=== PATIENT | female | born 1955 | race Caucasian/White ===

== ENCOUNTER 2019-04-12 19:09 | Emergency (ER) | payer OTHER ==
[2019-04-12] MEDS ORDERED: PANTOPRAZOLE 40 MG INJ ONE (20:50)
[2019-04-12] MEDS ORDERED: MORPHINE 2 MG/ML SYR ONE ×2 (20:50→23:12)
[2019-04-12] MEDS ORDERED: NA CHLORIDE 0.9% 1,000 ML ONE (20:50)
[2019-04-12] MEDS ORDERED: ONDANSETRON 4 MG/2 ML VIAL ONE (20:50)
[2019-04-12 20:53] LABS: Absolute Lymphocytes (CBC) 1.6 K/uL (0.7-4.9); Basophils % 0.4 % (0-1.3); Hematocrit 35.9 % (36.0-45.0); MPV 10.2 fL (7.6-11.3); RBC Red Blood Cell Count 3.71 M/uL (3.86-4.86)
[2019-04-12 20:59] LABS: Protime INR 1.06
[2019-04-12 21:12] LABS: ALT/SGPT 24 U/L (12-78); AST/SGOT 22 U/L (15-37); Albumin 3.4 g/dL (3.4-5.0); Alkaline Phosphatase 70 U/L (45-117); BUN Blood Urea Nitrogen 18 mg/dL (7-18); Bicarbonate 29 mmol/L (21-32); Bilirubin Direct 0.1 mg/dL (0-0.2); Bilirubin Total 0.2 mg/dL (0.2-1.0); Glucose Level 91 mg/dL (74-106); Lipase 68 U/L (73-393); Magnesium 1.7 mg/dL (1.8-2.4); NT PRO-BNP 292 pg/mL (<125); Potassium 3.6 mmol/L (3.5-5.1); Protein, Total 7.6 g/dL (6.4-8.2); Sodium Level 138 mmol/L (136-145); Troponin (Emerg Dept Use Only) < 0.02 ng/mL (0.0-0.045)
[2019-04-12 21:36] LABS: Blood Morphology Comment NOT SEEN (NOT SEEN); Platelet Estimate DECR; Urine White Blood Cell Casts OK
[2019-04-12] MEDS ORDERED: METRONIDAZOLE 500mg IVPB 500 MG/100 ML BAG IV ONE (22:05)
[2019-04-12] MEDS ORDERED: CIPROFLOXACIN 400mg IV 400 MG/200 ML BAG IV ONE (22:05)
--- NOTE | 2019-04-12 22:08 | RAD REPORT ---
EXAM DESCRIPTION: Janice Single View04/12/2019 9:15 pm CLINICAL HISTORY: Abdominal pain COMPARISON: none FINDINGS: The lungs appear clear of acute infiltrate. The heart is probably upper limits normal siz e IMPRESSION: No acute abnormalities displayed
[2019-04-12] MEDS ORDERED: MAGNESIUM SULFATE 1 gm IVPB 1 GM/100 ML BAG IV ONE (22:45)
--- NOTE | 2019-04-13 00:15 | ER ---
Nurse's Notes [facility] Name: Asia Cotton Age: 63 yrs Sex: Female : 1955 Arrival Date: 04/12/2019 Time: 19:11 Bed 30 Private MD: Diagnosis: Generalized abdominal pain;Constipation Presentation: 04/12 20:16 Presenting complaint: Patient states: upper abd pain x 1 week. States she has been out aa1 of her protonix and has been eating lots of spicy food lately. Transition of care: patient was not received from another setting of care. Onset of symptoms was April 05, 2019. Risk Assessment: Do you want to hurt yourself or someone else? Patient reports no desire to harm self or others. Initial Sepsis Screen: Does the patient meet any 2 criteria? No. Patient's initial sepsis screen is negative. Does the patient have a suspected source of infection? No. Patient's initial sepsis screen is negative. Care prior to arrival: None. 20:16 Method Of Arrival: Ambulatory aa1 20:16 Acuity: DONTE 3 aa1 Triage Assessment: 20:16 General: Appears in no apparent distress. comfortable, Behavior is calm, cooperative, aa1 appropriate for age. Pain: Complains of pain in epigastric area. Historical: - Allergies: 20:31 Coconut; aa1 20:31 Metformin HCl; aa1 20:31 Hydrocodone-Acetaminophen; aa1 - Home Meds: 20:31 aspirin 325 mg Oral tab 1 tab once daily [Active]; levothyroxine 125 mcg tab 1 tab once aa1 daily [Active]; metoprolol tartrate 25 mg Oral tab 1 tab once daily [Active]; glipizide 5 mg Oral tab 0.5 tab nightly [Active]; simvastatin 10 mg Oral tab 1 tab once daily [Active]; pantoprazole 40 mg oral TbEC 2 tabs 2 times per day [Active]; cholecalciferol (vitamin D3) 5,000 unit oral tab daily [Active]; phentermine 37.5 mg oral cap 1 cap once daily [Active]; sytojsjtor-enwruickep-rvb-cod 28-674-57-30 mg oral cap as needed [Active]; tizanidine 4 mg oral cap 2 caps nightly [Active]; temazepam 30 mg Oral cap 1 cap once daily [Active]; promethazine 25 mg Oral tab 1 tab as needed [Active]; - PMHx: 20:31 Diabetes - NIDDM; Hypertension; High Cholesterol; Hypothyroidism; GERD; Cancer, Breast; aa1 cervical cancer; - PSHx: 20:31 Cholecystectomy; ; Joint replacement; lymphnode removal; aa1 - Immunization history:: Flu vaccine is up to date. - Social history:: Smoking status: Patient/guardian denies using tobacco. - Ebola Screening: : Patient denies exposure to infectious person Patient denies travel to an Ebola-affected area in the 21 days before illness onset. - Family history:: not pertinent. Screenin:21 Abuse screen: Denies threats or abuse. Denies injuries from another. Nutritional rv screening: No deficits noted. Tuberculosis screening: No symptoms or risk factors identified. Fall Risk None identified. Assessment: 21:20 Reassessment: contrast finished at 2115. General: Appears in no apparent distress. rv uncomfortable, Behavior is calm, cooperative. Pain: Complains of pain in abdomen. Neuro: Level of Consciousness is awake, alert, obeys commands, Oriented to person, place, time, situation. Cardiovascular: Patient's skin is warm and dry. Respiratory: Airway is patent. GI: Bowel sounds present X 4 quads. Abd is soft and non tender X 4 quads. Derm: Skin is intact. Vital Signs: 20:16 BP 147 / 68; Pulse 78; Resp 18; Temp 100.0(O); Pulse Ox 99% ; Weight 99.34 kg; Height 5 aa1 ft. 6 in. (167.64 cm); Pain 9/10; 23:29 BP 116 / 73; Pulse 73; Resp 18; Pulse Ox 97% on R/A; mg2 23:47 BP 121 / 72; Pulse 75; Resp 17; Pulse Ox 98% on R/A; rv 04/13 00:42 BP 120 / 74; Pulse 71; Resp 17; Pulse Ox 100% on R/A; rv 04/12 20:16 Body Mass Index 35.35 (99.34 kg, 167.64 cm) aa1 ED Course: 04/12 19:11 Patient arrived in ED. rg4 20:07 Robi Campuzano MD is Attending Physician. mindi 20:16 Arm band placed on right wrist. aa1 20:22 Triage completed. aa1 20:26 Kenneth Arce, BLANCA is Primary Nurse. rv 20:56 Inserted saline lock: 22 gauge in right upper arm, using aseptic technique. Blood mg2 collected. 21:16 XRAY Chest (1 view) In Process Unspecified. EDMS 21:21 Patient has correct armband on for positive identification. Call light in reach. Side rv rails up X 1. Pulse ox on. NIBP on. 22:56 Whit Chopra FNP-C is PHCP. kb 23:07 CT Abd/Pelvis - PO and IV Contrast In Process Unspecified. EDMS 23:30 No provider procedures requiring assistance completed. mg2 04/13 00:44 IV discontinued, intact, bleeding controlled, No redness/swelling at site. Pressure rv dressing applied. Administered Medications: 04/12 20:57 Drug: morphine 2 mg {Note: rass 0.} Route: IVP; Site: right upper arm; rv 21:55 Follow up: Response: No adverse reaction; Marked relief of symptoms; Pain is decreased; rv RASS: Alert and Calm (0) 20:57 Drug: Zofran 4 mg Route: IVP; Site: right upper arm; rv 21:55 Follow up: Response: No adverse reaction rv 20:57 Drug: ProTONIX 40 mg Route: IVP; Site: right upper arm; rv 23:20 Follow up: Response: No adverse reaction rv 20:58 Drug: NS 0.9% 1000 ml Route: IV; Rate: 1 bolus; Site: right upper arm; rv 21:54 Follow up: IV Status: Completed infusion; IV Intake: 1000ml rv 22:06 Drug: Flagyl 500 mg Volume: 100 ml; Route: IVPB; Rate: 200 ml/hr; Infused Over: 30 rv mins; Site: right upper arm; 22:36 Follow up: IV Status: Completed infusion; IV Intake: 100ml rv 23:15 Drug: morphine 2 mg Route: IVP; Site: right upper arm; rv 23:20 Drug: Magnesium Sulfate 1 grams Route: IVPB; Infused Over: 1 hrs; Site: right upper arm;rv 23:46 Follow up: IV Status: Completed infusion; IV Intake: 100ml rv 23:46 Drug: Cipro 400 mg Volume: 200 ml; Route: IVPB; Infused Over: 60 mins; Site: right rv upper arm; 04/13 00:43 Follow up: IV Status: Completed infusion; IV Intake: 200ml rv Intake: 04/12 21:54 IV: 1000ml; Total: 1000ml. rv 22:36 IV: 100ml; Total: 1100ml. rv 23:46 IV: 100ml; Total: 1200ml. rv 04/13 00:43 IV: 200ml; Total: 1400ml. rv Outcome: 00:14 Discharge ordered by . deya 00:42 Discharged to home ambulatory. rv 00:42 Condition: good 00:42 Discharge instructions given to patient, Instructed on discharge instructions, follow up and referral plans. medication usage, Demonstrated understanding of instructions, follow-up care, medications, Prescriptions given X 4. 00:44 Patient left the ED. rv Signatures: Dispatcher [employer] EDMS Whit Chopra, ROLLER SKATE ASSEMBLER-C ROLLER SKATE ASSEMBLER-CkMarii Diaz, RN RN aa1 Robi Campuzano MD MD cha Garcia, Rubi rg4 Lenny Moon RN RN mg2 Vicente, Ronaldo, RN RN rv
--- NOTE | 2019-04-13 00:15 | EDPHYS ---
Physician Documentation [facility] Name: Asia Cotton Age: 63 yrs Sex: Female : 1955 Arrival Date: 04/12/2019 Time: 19:11 Bed 30 Private MD: ED Physician Robi Campuzano HPI: 04/12 20:42 This 63 yrs old Female presents to ER via Ambulatory with complaints of mindi Abdominal Pain. 20:42 The patient presents with abdominal pain in the upper abdomen, in the lower abdomen, mindi abdominal distention in the upper abdomen, in the lower abdomen. Onset: The symptoms/episode began/occurred 2 day(s) ago. The symptoms do not radiate. Associated signs and symptoms: none. The symptoms are described as crampy. Modifying factors: The symptoms are alleviated by nothing, the symptoms are aggravated by movement. Severity of pain: At its worst the pain was mild moderate in the emergency department the pain is unchanged. The patient has not experienced similar symptoms in the past. Historical: - Allergies: 20:31 Coconut; aa1 20:31 Metformin HCl; aa1 20:31 Hydrocodone-Acetaminophen; aa1 - Home Meds: 20:31 aspirin 325 mg Oral tab 1 tab once daily [Active]; levothyroxine 125 mcg tab 1 tab once aa1 daily [Active]; metoprolol tartrate 25 mg Oral tab 1 tab once daily [Active]; glipizide 5 mg Oral tab 0.5 tab nightly [Active]; simvastatin 10 mg Oral tab 1 tab once daily [Active]; pantoprazole 40 mg oral TbEC 2 tabs 2 times per day [Active]; cholecalciferol (vitamin D3) 5,000 unit oral tab daily [Active]; phentermine 37.5 mg oral cap 1 cap once daily [Active]; lqceeerjwx-vrrfohpsed-ulp-cod [id number] mg oral cap as needed [Active]; tizanidine 4 mg oral cap 2 caps nightly [Active]; temazepam 30 mg Oral cap 1 cap once daily [Active]; promethazine 25 mg Oral tab 1 tab as needed [Active]; - PMHx: 20:31 Diabetes - NIDDM; Hypertension; High Cholesterol; Hypothyroidism; GERD; Cancer, Breast; aa1 cervical cancer; - PSHx: 20:31 Cholecystectomy; ; Joint replacement; lymphnode removal; aa1 - Immunization history:: Flu vaccine is up to date. - Social history:: Smoking status: Patient/guardian denies using tobacco. - Ebola Screening: : Patient denies exposure to infectious person Patient denies travel to an Ebola-affected area in the 21 days before illness onset. - Family history:: not pertinent. ROS: 20:42 Constitutional: Negative for fever, chills, and weight loss, Eyes: Negative for injury, mindi pain, redness, and discharge, ENT: Negative for injury, pain, and discharge, Neck: Negative for injury, pain, and swelling, Cardiovascular: Negative for chest pain, palpitations, and edema, Respiratory: Negative for shortness of breath, cough, wheezing, and pleuritic chest pain, Back: Negative for injury and pain, : Negative for injury, bleeding, discharge, and swelling, MS/Extremity: Negative for injury and deformity, Skin: Negative for injury, rash, and discoloration, Neuro: Negative for headache, weakness, numbness, tingling, and seizure, Psych: Negative for depression, anxiety, suicide ideation, homicidal ideation, and hallucinations, Allergy/Immunology: Negative for hives, rash, and allergies, Endocrine: Negative for neck swelling, polydipsia, polyuria, polyphagia, and marked weight changes, Hematologic/Lymphatic: Negative for swollen nodes, abnormal bleeding, and unusual bruising. 20:42 Abdomen/GI: Positive for abdominal pain, of the right upper quadrant, left upper quadrant, right lower quadrant and left lower quadrant. Exam: 20:42 Constitutional: This is a well developed, well nourished patient who is awake, alert, mindi and in no acute distress. Head/Face: Normocephalic, atraumatic. Eyes: Pupils equal round and reactive to light, extra-ocular motions intact. Lids and lashes normal. Conjunctiva and sclera are non-icteric and not injected. Cornea within normal limits. Periorbital areas with no swelling, redness, or edema. ENT: Nares patent. No nasal discharge, no septal abnormalities noted. Tympanic membranes are normal and external auditory canals are clear. Oropharynx with no redness, swelling, or masses, exudates, or evidence of obstruction, uvula midline. Mucous membranes moist. Neck: Trachea midline, no thyromegaly or masses palpated, and no cervical lymphadenopathy. Supple, full range of motion without nuchal rigidity, or vertebral point tenderness. No Meningismus. Chest/axilla: Normal chest wall appearance and motion. Nontender with no deformity. No lesions are appreciated. Cardiovascular: Regular rate and rhythm with a normal S1 and S2. No gallops, murmurs, or rubs. Normal PMI, no JVD. No pulse deficits. Respiratory: Lungs have equal breath sounds bilaterally, clear to auscultation and percussion. No rales, rhonchi or wheezes noted. No increased work of breathing, no retractions or nasal flaring. Back: No spinal tenderness. No costovertebral tenderness. Full range of motion. Skin: Warm, dry with normal turgor. Normal color with no rashes, no lesions, and no evidence of cellulitis. MS/ Extremity: Pulses equal, no cyanosis. Neurovascular intact. Full, normal range of motion. Neuro: Awake and alert, GCS 15, oriented to person, place, time, and situation. Cranial nerves II-XII grossly intact. Motor strength 5/5 in all extremities. Sensory grossly intact. Cerebellar exam normal. Normal gait. Psych: Awake, alert, with orientation to person, place and time. Behavior, mood, and affect are within normal limits. 20:42 Abdomen/GI: Inspection: abdomen appears normal, Bowel sounds: active, Palpation: mild abdominal tenderness, in all quadrants, Liver: no appreciated palpable abnormalities, Hernia: not appreciated. Vital Signs: 20:16 BP 147 / 68; Pulse 78; Resp 18; Temp 100.0(O); Pulse Ox 99% ; Weight 99.34 kg; Height 5 aa1 ft. 6 in. (167.64 cm); Pain 9/10; 23:29 BP 116 / 73; Pulse 73; Resp 18; Pulse Ox 97% on R/A; mg2 23:47 BP 121 / 72; Pulse 75; Resp 17; Pulse Ox 98% on R/A; rv 04/13 00:42 BP 120 / 74; Pulse 71; Resp 17; Pulse Ox 100% on R/A; rv 04/12 20:16 Body Mass Index 35.35 (99.34 kg, 167.64 cm) aa1 MDM: 04/12 20:07 Patient medically screened. [facility] 20:44 Data reviewed: vital signs, nurses notes, lab test result(s), EKG, radiologic studies, [facility] CT scan, plain films. 04/13 00:12 Data interpreted: Pulse oximetry: on room air is 98 %. Interpretation: normal. kb Counseling: I had a detailed discussion with the patient and/or guardian regarding: the historical points, exam findings, and any diagnostic results supporting the discharge/admit diagnosis, lab results, radiology results, the need for outpatient follow up, a family practitioner, to return to the emergency department if symptoms worsen or persist or if there are any questions or concerns that arise at home. 04/12 20:39 Order name: Basic Metabolic Panel; Complete Time: 22:04 [facility] 04/12 20:39 Order name: CBC with Diff; Complete Time: 22:04 [facility] 04/12 20:39 Order name: LFT's; Complete Time: 22:04 [facility] 04/12 20:39 Order name: Magnesium; Complete Time: 22:04 [facility] 04/12 20:39 Order name: NT PRO-BNP; Complete Time: 22:04 [facility] 04/12 20:39 Order name: PT-INR; Complete Time: 22:04 [facility] 04/12 20:39 Order name: Troponin (emerg Dept Use Only); Complete Time: 22:04 [facility] 04/12 20:39 Order name: XRAY Chest (1 view); Complete Time: 22:56 [facility] 04/12 20:39 Order name: Lipase; Complete Time: 22:04 [facility] 04/12 20:39 Order name: CT Abd/Pelvis - PO and IV Contrast [facility] 04/12 21:11 Order name: CBC Smear Scan; Complete Time: 22:04 [facility] 04/12 20:39 Order name: Cardiac monitoring; Complete Time: 20:59 [facility] 04/12 20:39 Order name: EKG - Nurse/Tech; Complete Time: 23:47 [facility] 04/12 20:39 Order name: IV Saline Lock; Complete Time: 20:59 [facility] 04/12 20:39 Order name: Labs collected and sent; Complete Time: 20:59 [facility] 04/12 20:39 Order name: O2 Per Protocol; Complete Time: 21:02 [facility] 04/12 20:39 Order name: O2 Sat Monitoring; Complete Time: 21:02 [facility] Administered Medications: 04/12 20:57 Drug: morphine 2 mg {Note: rass 0.} Route: IVP; Site: right upper arm; rv 21:55 Follow up: Response: No adverse reaction; Marked relief of symptoms; Pain is decreased; rv RASS: Alert and Calm (0) 20:57 Drug: Zofran 4 mg Route: IVP; Site: right upper arm; rv 21:55 Follow up: Response: No adverse reaction rv 20:57 Drug: ProTONIX 40 mg Route: IVP; Site: right upper arm; rv 23:20 Follow up: Response: No adverse reaction rv 20:58 Drug: NS 0.9% 1000 ml Route: IV; Rate: 1 bolus; Site: right upper arm; rv 21:54 Follow up: IV Status: Completed infusion; IV Intake: 1000ml rv 22:06 Drug: Flagyl 500 mg Volume: 100 ml; Route: IVPB; Rate: 200 ml/hr; Infused Over: 30 rv mins; Site: right upper arm; 22:36 Follow up: IV Status: Completed infusion; IV Intake: 100ml rv 23:15 Drug: morphine 2 mg Route: IVP; Site: right upper arm; rv 23:20 Drug: Magnesium Sulfate 1 grams Route: IVPB; Infused Over: 1 hrs; Site: right upper arm;rv 23:46 Follow up: IV Status: Completed infusion; IV Intake: 100ml rv 23:46 Drug: Cipro 400 mg Volume: 200 ml; Route: IVPB; Infused Over: 60 mins; Site: right rv upper arm; 04/13 00:43 Follow up: IV Status: Completed infusion; IV Intake: 200ml rv Disposition: 04/13/19 00:14 Discharged to Home. Impression: Generalized abdominal pain, Constipation. - Condition is Stable. - Discharge Instructions: Constipation, Pediatric, [id number], Abdominal Pain, Pediatric. - Prescriptions for Zofran 4 mg Oral Tablet - take 1 tablet by ORAL route every 6 hours As needed; 20 tablet. Bentyl 20 mg Oral Tablet - take 1 tablet by ORAL route every 6 hours As needed; 20 tablet. Flagyl 500 mg Oral Tablet - take 1 tablet by ORAL route every 8 hours for 10 days; 30 tablet. Protonix 40 mg Oral Tablet - take 1 tablet by ORAL route once daily; 30 tablet. - Medication Reconciliation Form, Thank You Letter, Antibiotic Education, Prescription Opioid Use form. - Follow up: Emergency Department; When: As needed; Reason: Worsening of condition. Follow up: Private Physician; When: 2 - 3 days; Reason: Recheck today's complaints, Continuance of care, Re-evaluation by your physician. Addendum: 04/19/2019 10:49 Co-signature as Attending Physician, Robi Campuzano MD I agree with the assessment and c harper plan of care. Signatures: Dispatcher [employer] EDSC Whit Chopra, SOCKET PULLER-C SOCKET PULLER-Ckb Marii Collins RN RN aa1 Robi Campuzano MD MD cha Vicente, Ronaldo RN RN rv Corrections: (The following items were deleted from the chart) 04/13 00:44 00:14 04/13/2019 00:14 Discharged to Home. Impression: Generalized abdominal pain; rv Constipation. Condition is Stable. Forms are Medication Reconciliation Form, Thank You Letter, Antibiotic Education, Prescription Opioid Use. Follow up: Emergency Department; When: As needed; Reason: Worsening of condition. Follow up: Private Physician; When: 2 - 3 days; Reason: Recheck today's complaints, Continuance of care, Re-evaluation by your physician. kb
--- NOTE | 2019-04-15 12:23 | RAD REPORT ---
EXAM DESCRIPTION: CT - Abdomen Pelvis W Contrast - 04/12/2019 11:07 pm CLINICAL HISTORY: Abdominal pain. TECHNIQUE: CT scan of the abdomen and pelvis was performed with oral and intravenous contrast. 5 mm arterial phase axial images of the abdomen were obtained. 5 mm venous phase axial images of the abdomen and pelvis were obtained along with coronal and sagitta l reformatted images. DOSE OPTIMIZATION: This facility uses dose optimization techniques as appropriate to perform exams, including at least one of the following techniques: 1. Automated exposure control. 2. Adjustment of the mA and/or kV according to patient size (this includes techniques or standardized protocols for targeted exams where dose is matched to the indication/reason for exam, i.e. extremiti es or head). 3. Use of iterative reconstructive technique. INTRAVENOUS AND ORAL CONTRAST: Not documented. Please refer to medical record. COMPARISON: None. FINDINGS: Lung Bases: Normal. Liver: There is evidence of hepatic cirrhosis. Spleen: Normal. Pancreas: Normal. Gallbladder: Surgically absent. Adrenal Glands: Normal. Kidneys: Normal. Retroperitoneal Structures: Normal. Bowel Survey: There is increased stool identified throughout the ascending, transverse, and descendin g colon. The distal ileum is unremarkable. The appendix is unremarkable. There is moderately severe diverticulosis of the distal sigmoid colon. Uterus and Adnexa: Absent. Urinary Bladder: Normal. Peritoneal Cavity: Normal. Mesenteric Structures: Normal. Abdominal Wall: There is a tiny umbilical hernia containing fat. Bony Structures: No suspicious lesions. IMPRESSION: 1. Increased stool within the ascending, transverse, and descending colon. 2. Moderately severe sigmoid diverticulosis. 3. Evidence of hepatic cirrhosis. 4. Atherosclerotic disease. Electronically signed by: Desmond Torres MD 04/12/2019 11:38 PM PANTS CUTTER Due to temporary technical issues with the PACS/Fluency reporting system, reports are being signed by the in house radiologist as a courtesy to ensure prompt reporting. The interpreting radiologist is f ully responsible for the content of the report.
== END 2019-04-13 00:44 | disposition home or self-care (01) ==
LOC: ER 19:09
DX: K59.00 Constipation, unspecified (principal); I10 Essential (primary) hypertension; E11.9 Type 2 diabetes mellitus without complications; E78.00 Pure hypercholesterolemia, unspecified; E03.9 Hypothyroidism, unspecified; Z79.82 Long term (current) use of aspirin; Z85.3 Personal history of malignant neoplasm of breast; Z85.41 Personal history of malignant neoplasm of cervix uteri
CPT/HCPCS: 96365; 96367; 96361; 85025; 80048; 36415; 83735; 85610; 80076; 84484; 83690; 83880; 74177; 71045; 96375; 99284; Q9967; C9113; J3475; J2270 ×2; J7030; J2405; J0744

== ENCOUNTER 2019-05-12 18:22 | Emergency (ER) | payer OTHER ==
[2019-05-12] MEDS ORDERED: ONDANSETRON 4 MG (ODT) TAB ONE (19:20)
--- NOTE | 2019-05-12 20:15 | ER ---
Nurse's Notes [facility] Name: Asia Cotton Age: 63 yrs Sex: Female : 1955 Arrival Date: 05/12/2019 Time: 18:24 Bed 18 Private MD: Diagnosis: Influenza due to identified novel influenza A virus Presentation: 05/12 18:46 Presenting complaint: Patient states: HERNANDEZ, cough, sneezing, N/V, soreness in chest from jl7 coughing x 3 days, granddaughter has strep and flu. Transition of care: patient was not received from another setting of care. Onset of symptoms was May 09, 2019. Risk Assessment: Do you want to hurt yourself or someone else? Patient reports no desire to harm self or others. Initial Sepsis Screen: Does the patient meet any 2 criteria? No. Patient's initial sepsis screen is negative. Does the patient have a suspected source of infection? No. Patient's initial sepsis screen is negative. Care prior to arrival: None. 18:46 Method Of Arrival: Ambulatory [facility] 18:46 Acuity: DONTE 4 7 Historical: - Allergies: 18:49 Coconut; 18:49 Hydrocodone-Acetaminophen; 18:49 Metformin HCl; jl7 - Home Meds: 18:49 aspirin 325 mg Oral tab 1 tab once daily [Active]; wwlexqbaiz-ezasgwzkom-xie-cod [facility] [id number] mg Oral cap as needed [Active]; cholecalciferol (vitamin D3) 5,000 unit Oral tab daily [Active]; glipizide 5 mg Oral tab 0.5 tab nightly [Active]; levothyroxine 125 mcg tab 1 tab once daily [Active]; metoprolol tartrate 25 mg Oral tab 1 tab once daily [Active]; pantoprazole 40 mg Oral TbEC 2 tabs 2 times per day [Active]; phentermine 37.5 mg Oral cap 1 cap once daily [Active]; promethazine 25 mg Oral tab 1 tab as needed [Active]; simvastatin 10 mg Oral tab 1 tab once daily [Active]; temazepam 30 mg Oral cap 1 cap once daily [Active]; tizanidine 4 mg Oral cap 2 caps nightly [Active]; - PMHx: 18:49 Cancer, Breast; cervical cancer; Diabetes - NIDDM; GERD; High Cholesterol; jl7 Hypertension; Hypothyroidism; - PSHx: 18:49 Cholecystectomy; ; lymphnode removal; Joint replacement; jl7 - Immunization history:: Adult Immunizations up to date. - Coronavirus screen:: The patient has NOT traveled to [place], [place], or [place] in the past 14 days. Proceed with normal triage process as indicated. - Social history:: Smoking status: Patient denies any tobacco usage or history of. - Ebola Screening: : No symptoms or risks identified at this time. Screenin:10 Abuse screen: Denies threats or abuse. Denies injuries from another. Nutritional wh screening: No deficits noted. Tuberculosis screening: No symptoms or risk factors identified. Fall Risk None identified. Assessment: 19:10 General: Appears in no apparent distress. Behavior is calm, cooperative, appropriate wh for age. Pain: Denies pain. Neuro: Level of Consciousness is awake, alert, obeys commands, Oriented to person, place, time, situation, Appropriate for age. Cardiovascular: Heart tones S1 S2. Respiratory: Reports shortness of breath cough that is Airway is patent Respiratory effort is even, unlabored, Respiratory pattern is regular, symmetrical, Breath sounds are clear bilaterally. GI: Abdomen is flat, non-distended. : No signs and/or symptoms were reported regarding the genitourinary system. EENT: Throat is pink. Derm: Skin is intact, is healthy with good turgor, Skin is pink, warm \T\ dry. normal. Musculoskeletal: Circulation, motion, and sensation intact. 20:09 Reassessment: Patient appears in no apparent distress at this time. No changes from previously documented assessment. Patient and/or family updated on plan of care and expected duration. Pain level reassessed. Patient is alert, oriented x 3, equal unlabored respirations, skin warm/dry/pink. Vital Signs: 18:49 BP 100 / 68; Pulse 81; Resp 17 S; Temp 99.1(O); Pulse Ox 98% on R/A; Weight 99.79 kg jl7 (R); Height 5 ft. 6 in. (167.64 cm) (R); Pain 10/10; 20:00 BP 101 / 58; Pulse 77; Resp 18; Pulse Ox 96% on R/A; wh 18:49 Body Mass Index 35.51 (99.79 kg, 167.64 cm) [facility] ED Course: 18:24 Patient arrived in ED. as 18:47 Triage completed. 7 18:49 Arm band placed on right wrist. [facility] 18:50 Whit Chopra FNP-C [facility]. kb 18:50 Robi Campuzano MD is Attending Physician. kb 19:10 Patient has correct armband on for positive identification. Bed in low position. Call light in reach. Side rails up X 1. Pulse ox on. NIBP on. 19:14 Sami Duke is Primary Nurse. 20:26 No provider procedures requiring assistance completed. Patient did not have IV access during this emergency room visit. Administered Medications: 19:25 Drug: Zofran 4 mg Route: PO; 20:26 Follow up: Response: No adverse reaction; Nausea is decreased Outcome: 20:16 Discharge ordered by . kb 20:27 Discharged to home ambulatory. 20:27 Condition: stable 20:27 Discharge instructions given to patient, Instructed on discharge instructions, follow up and referral plans. medication usage, POC Demonstrated understanding of instructions, follow-up care, medications, POC Prescriptions given X 1. 20:28 Patient left the ED. Signatures: Whit Chopra FNP-C FNP-Silvina Tate Jahala, RN RN [facility] Sami Duke
--- NOTE | 2019-05-12 20:15 | EDPHYS ---
Physician Documentation [facility] Name: Asia Cotton Age: 63 yrs Sex: Female : 1955 Arrival Date: 05/12/2019 Time: 18:24 Bed 18 Private MD: ED Physician Robi Campuzano HPI: 05/12 20:15 This 63 yrs old Female presents to ER via Ambulatory with complaints of Flu kb Symptoms. 20:15 The patient or guardian reports flu symptoms, low-grade fever, myalgias. Onset: The kb symptoms/episode began/occurred 3 day(s) ago. Severity of symptoms: At their worst the symptoms were moderate, in the emergency department the symptoms are unchanged. Modifying factors: The symptoms are alleviated by nothing, the symptoms are aggravated by nothing. Associated signs and symptoms: Pertinent positives: fever, nausea, vomiting. The patient has not experienced similar symptoms in the past. The patient has not recently seen a physician. Historical: - Allergies: 18:49 Coconut; jl7 18:49 Hydrocodone-Acetaminophen; jl7 18:49 Metformin HCl; jl7 - Home Meds: 18:49 aspirin 325 mg Oral tab 1 tab once daily [Active]; sozopjnadh-kxtvkgyvou-xjj-cod jl7 [id number] mg Oral cap as needed [Active]; cholecalciferol (vitamin D3) 5,000 unit Oral tab daily [Active]; glipizide 5 mg Oral tab 0.5 tab nightly [Active]; levothyroxine 125 mcg tab 1 tab once daily [Active]; metoprolol tartrate 25 mg Oral tab 1 tab once daily [Active]; pantoprazole 40 mg Oral TbEC 2 tabs 2 times per day [Active]; phentermine 37.5 mg Oral cap 1 cap once daily [Active]; promethazine 25 mg Oral tab 1 tab as needed [Active]; simvastatin 10 mg Oral tab 1 tab once daily [Active]; temazepam 30 mg Oral cap 1 cap once daily [Active]; tizanidine 4 mg Oral cap 2 caps nightly [Active]; - PMHx: 18:49 Cancer, Breast; cervical cancer; Diabetes - NIDDM; GERD; High Cholesterol; jl7 Hypertension; Hypothyroidism; - PSHx: 18:49 Cholecystectomy; ; lymphnode removal; Joint replacement; jl7 - Immunization history:: Adult Immunizations up to date. - Coronavirus screen:: The patient has NOT traveled to [place], [place], or [place] in the past 14 days. Proceed with normal triage process as indicated. - Social history:: Smoking status: Patient denies any tobacco usage or history of. - Ebola Screening: : No symptoms or risks identified at this time. ROS: 20:14 ENT: Negative for injury, pain, and discharge, Neck: Negative for injury, pain, and kb swelling, Cardiovascular: Negative for chest pain, palpitations, and edema, Respiratory: Negative for shortness of breath, cough, wheezing, and pleuritic chest pain, Back: Negative for injury and pain, MS/Extremity: Negative for injury and deformity, Skin: Negative for injury, rash, and discoloration, Neuro: Negative for headache, weakness, numbness, tingling, and seizure. 20:14 Constitutional: Positive for body aches, chills, fatigue, fever, malaise. 20:14 Abdomen/GI: Positive for nausea and vomiting. Exam: 20:14 Constitutional: This is a well developed, well nourished patient who is awake, alert, kb and in no acute distress. Head/Face: Normocephalic, atraumatic. ENT: Nares patent. No nasal discharge, no septal abnormalities noted. Tympanic membranes are normal and external auditory canals are clear. Oropharynx with no redness, swelling, or masses, exudates, or evidence of obstruction, uvula midline. Mucous membranes moist. Neck: Trachea midline, no thyromegaly or masses palpated, and no cervical lymphadenopathy. Supple, full range of motion without nuchal rigidity, or vertebral point tenderness. No Meningismus. Chest/axilla: Normal chest wall appearance and motion. Nontender with no deformity. No lesions are appreciated. Cardiovascular: Regular rate and rhythm with a normal S1 and S2. No gallops, murmurs, or rubs. Normal PMI, no JVD. No pulse deficits. Respiratory: Lungs have equal breath sounds bilaterally, clear to auscultation and percussion. No rales, rhonchi or wheezes noted. No increased work of breathing, no retractions or nasal flaring. Abdomen/GI: Soft, non-tender, with normal bowel sounds. No distension or tympany. No guarding or rebound. No evidence of tenderness throughout. Skin: Warm, dry with normal turgor. Normal color with no rashes, no lesions, and no evidence of cellulitis. MS/ Extremity: Pulses equal, no cyanosis. Neurovascular intact. Full, normal range of motion. Neuro: Awake and alert, GCS 15, oriented to person, place, time, and situation. Cranial nerves II-XII grossly intact. Motor strength 5/5 in all extremities. Sensory grossly intact. Cerebellar exam normal. Normal gait. Vital Signs: 18:49 BP 100 / 68; Pulse 81; Resp 17 S; Temp 99.1(O); Pulse Ox 98% on R/A; Weight 99.79 kg jl7 (R); Height 5 ft. 6 in. (167.64 cm) (R); Pain 10/10; 20:00 BP 101 / 58; Pulse 77; Resp 18; Pulse Ox 96% on R/A; wh 18:49 Body Mass Index 35.51 (99.79 kg, 167.64 cm) jl7 MDM: 18:59 Patient medically screened. kb 20:14 Data reviewed: vital signs, nurses notes. Data interpreted: Pulse oximetry: on room air kb is 96 %. Interpretation: normal. Counseling: I had a detailed discussion with the patient and/or guardian regarding: the historical points, exam findings, and any diagnostic results supporting the discharge/admit diagnosis, lab results, the need for outpatient follow up, a family practitioner, to return to the emergency department if symptoms worsen or persist or if there are any questions or concerns that arise at home. 05/12 18:50 Order name: Flu; Complete Time: 19:56 kb 05/12 18:50 Order name: Strep; Complete Time: 19:56 kb 05/12 19:56 Order name: Throat Culture EDMS Administered Medications: 19:25 Drug: Zofran 4 mg Route: PO; wh 20:26 Follow up: Response: No adverse reaction; Nausea is decreased wh Disposition: 05/13 07:39 Co-signature as Attending Physician, Robi Campuzano MD I agree with the assessment and mindi plan of care. Disposition: 05/12/19 20:16 Discharged to Home. Impression: Influenza due to identified novel influenza A virus. - Condition is Stable. - Discharge Instructions: Influenza, Adult, Kvlv-hi-Ypog, Viral Respiratory Infection, [id number]. - Prescriptions for Zofran 4 mg Oral Tablet - take 1 tablet by ORAL route every 6 hours As needed; 20 tablet. - Medication Reconciliation Form, Thank You Letter, Antibiotic Education, Prescription Opioid Use form. - Follow up: Emergency Department; When: As needed; Reason: Worsening of condition. Follow up: Private Physician; When: 2 - 3 days; Reason: Recheck today's complaints, Continuance of care, Re-evaluation by your physician. Signatures: Dispatcher [employer] EDWhit Macdonald, TREV-Krista LÓPEZP-Robi Isaac MD MD cha Leal, Jahala, RN RN jl7 Sami Duke Corrections: (The following items were deleted from the chart) 05/12 20:28 20:16 05/12/2019 20:16 Discharged to Home. Impression: Influenza due to identified novel influenza A virus. Condition is Stable. Forms are Medication Reconciliation Form, Thank You Letter, Antibiotic Education, Prescription Opioid Use. Follow up: Emergency Department; When: As needed; Reason: Worsening of condition. Follow up: Private Physician; When: 2 - 3 days; Reason: Recheck today's complaints, Continuance of care, Re-evaluation by your physician. kb
[2019-05-13 10:01] VITALS: TEMP 99.1
[2019-05-13 10:03] VITALS: BP 101/58; O2SAT 96
== END 2019-05-12 20:28 | disposition home or self-care (01) ==
LOC: ER 18:22
DX: J10.1 Influenza due to other identified influenza virus with other respiratory manifestations (principal); I10 Essential (primary) hypertension; E11.9 Type 2 diabetes mellitus without complications; E03.9 Hypothyroidism, unspecified; Z79.82 Long term (current) use of aspirin; Z85.3 Personal history of malignant neoplasm of breast; Z85.41 Personal history of malignant neoplasm of cervix uteri; Z88.5 Allergy status to narcotic agent; Z88.8 Allergy status to other drugs, medicaments and biological substances; Z91.018 Allergy to other foods
CPT/HCPCS: 87070; 87081; 87804; 99283

== ENCOUNTER 2022-06-21 18:06 | Emergency (ER) | payer OTHER ==
--- OUTSIDE RECORDS SUMMARY | 2022-06-21 18:10 | XMS REPORT | Continuity of Care Document ---
:1955 Author Organization [facility] t Address [address] [address] Care Team Providers Name Role Phone Radha Elias Attending Clinician Unavailable GREGG Attending Clinician Unavailable VALENTINA Attending Clinician Unavailable BHAVANA Attending Clinician Unavailable Hernandez Vines Attending Clinician [phone] GREGG Admitting Clinician Unavailable VALENTINA Admitting Clinician Unavailable BHAVANA Admitting Clinician Unavailable Payers Payer Name Policy Type Policy Number Effective Date Expiration Date S ninoska [employer] - [id number] 2021 [facility] 00:00:00 (MEDICARE REPLACEMENT/ADVANTA GE - HMO) [facility] [id number] 2017 [facility] - 00:00:00 STAR+PLUS (MEDICAID REPLACEMENT - HMO) [facility] [id number] 2021 [facility] 00:00:00 PLUS (MEDICARE REPLACEMENT HMO) Problems Condition Condition Condition Status Onset Resolution Last Treating Co mments Source Name Details Category Date Date Treatment Clinician Date Dehiscence Dehiscence Problem Active A zalea of of 5-06 [facility] surgical Surgical 00:00: dic wound Wound 00 Sports Medicin e Acquired Acquired Problem Active Azale a left Left 3-24 [facility] hallux Hallux 00:00: dic valgus Valgus 00 Sports Medicin e Metatarsal Metatarsal Problem Active A zalea joie of joie of 3-24 [facility] left foot Left Foot 00:00: dic 00 Sports Medicin e Disorder Disorder Problem Active Azale a of nervous of Nervous 9-18 Or thope system due System Due 00:00: di c to type 2 to Type 2 00 Spor ts diabetes Diabetes Medici n mellitus Mellitus e Foot Foot Problem Active Gay callus Callus 12-30 Orthope 00:00: dic 00 Sports Medicin e 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 Contractur 12-30 Or thope e of e of 00:00: dic gastrocnem Gastrocnem 00 Sp orts ius muscle ius Muscle Me dicin e Essential Essential Problem Active Com mon (primary) (primary) Spir it hypertensi hypertensi - [facility] on on [facility] Type 2 Type 2 Problem Active Common diabetes diabetes Spirit mellitus mellitus - [facility]I with with diabetic diabetic [facility] mononeurop mononeurop Me dical athy, athy, Center without without long-term long-term current current use of use of insulin insulin GERD GERD Problem Active Common without without Spirit esophagiti esophagiti - CHI s s [facility] Hyperlipid Hyperlipid Problem Active C ommon emia, emia, Spirit unspecifie unspecifie - CHI d d hyperlipid hyperlipid [facility] emia type emia type [facility] Hypothyroi Hypothyroi Problem Active C ommon dism, dism, Spirit unspecifie unspecifie - [facility]I d type d type [facility] History of History of Problem Active C ommon cervical cervical Spirit cancer cancer - [facility] History of History of Problem Active C ommon breast breast Spirit cancer cancer - [facility] Type 2 Type 2 Problem Active Common diabetes diabetes Spirit mellitus mellitus - [facility]I without without St complicati complicati Kimmy kes on, on, Medical without without Center long-term long-term current current use of use of insulin insulin Allergies, Adverse Reactions, Alerts Allergy Allergy Status Severity Reaction(s) Onset Inactive Treating Comm ents Source Name Type Date Date Clinician Lyalpesh Adverse Active vomiting Common Reaction [facility] Coconut Allergy Active Gay to Orthope substanc dic e Sports Medicin e Coconut Adverse Active hives Common Oil Reaction [facility] Metformi Adverse Active diarrhea Commo n n HCl Reaction [facility] Social History Smoking Status Start Date Stop Date Source Former Smoker Gay Orthoped[facility] c Sports Medicine Medications Ordered Filled Start Stop Current Ordering Indication Dosage Frequency Signature Comments Components Source Medication Medication Date Date Medication? Clinician (SIG) Name Name Gabapentin Gabapentin Yes Radha 1 capsule Common 2-11 [place] Spirit 00:00: - [facility]I 00 [facility] promethazin promethazin No promethazi Gay e 25 mg e 25 mg ne 25 mg Ortho pe tablet tablet tablet dic Sports Medicin e simvastatin simvastatin No simvastati Gay 10 mg 10 mg n 10 mg Orthope tablet Take tablet Take tablet dic 1 tablet 1 tablet Take 1 Sport s every day every day tablet Med icin by oral by oral every day e route. route. by oral route. sulfamethox sulfamethox No sulfametho Gay azole 800 azole 800 xazole 800 [facility] mg-trimetho mg-trimetho mg-trimeth dic prim 160 mg prim 160 mg oprim 160 Sports tablet Take tablet Take mg tablet Medicin 1 tablet 1 tablet Take 1 e every 12 every 12 tablet hours by hours by every 12 oral route. oral route. hours by oral route. temazepam temazepam No temazepam Gay 15 mg 15 mg 15 mg Orthope capsule capsule capsule dic Sports Medicin e temazepam temazepam No temazepam Gay 30 mg 30 mg 30 mg Orthope capsule capsule capsule dic Sports Medicin e tizanidine tizanidine No tizanidine Gay 4 mg tablet 4 mg tablet 4 mg O rthope tablet dic Sports Medicin e tramadol 50 tramadol 50 No tramadol Gay mg tablet mg tablet 50 mg Orth ope Take 1 Take 1 tablet dic tablet tablet Take 1 Sports every 6 every 6 tablet Medicin hours by hours by every 6 e oral route. oral route. hours by oral route. Vigamox 0.5 Vigamox 0.5 No Vigamox Gay % eye drops % eye drops 0.5 % eye Orthope drops dic Sports Medicin e Xarelto 10 Xarelto 10 No Xarelto 10 Gay mg tablet mg tablet mg tablet Orthope dic Sports Medicin e acetaminoph acetaminoph No acetaminop Gay en 300 en 300 hen 300 Orth[facility] mg-codeine mg-codeine mg-codeine dic 30 mg 30 mg 30 mg Sports tablet Take tablet Take tablet Medicin 1 - 2 1 - 2 Take 1 - 2 e tablet(s) P tablet(s) P tablet(s) O EVERY 6 O EVERY 6 P O EVERY HOURS PRN HOURS PRN 6 HOURS PAIN PAIN PRN PAIN acetaminoph acetaminoph No acetaminop Gay en 300 en 300 hen 300 [facility] mg-codeine mg-codeine mg-codeine dic 60 mg 60 mg 60 mg Sports tablet Take tablet Take tablet Medicin 1 tablet 1 tablet Take 1 e every 6 every 6 tablet hours by hours by every 6 oral route. oral route. hours by oral route. amitriptyli amitriptyli No amitriptyl Gay ne 100 mg ne 100 mg ine 100 mg Orthope tablet Take tablet Take tablet dic 2 at 2 at Take 2 at Sports bedtime bedtime bedtime Medici n e amitriptyli amitriptyli No amitriptyl Gay ne 50 mg ne 50 mg ine 50 mg Or thope tablet tablet tablet dic Sports Medicin e aspirin 325 aspirin 325 No 1 Q1D aspirin Gay mg tablet mg tablet 325 mg Ort hope Take 1 Take 1 tablet dic tablet tablet Take 1 Sports every day every day tablet Med icin by oral by oral every day e route. route. by oral route. azithromyci azithromyci No azithromyc Gay n 250 mg n 250 mg in 250 mg Or thope tablet tablet tablet dic Sports Medicin e butalbital butalbital No butalbital Gay 50 50 50 Orthope mg-acetamin mg-acetamin mg-acetami dic ophen 325 ophen 325 nophen 325 Sports mg-caffeine mg-caffeine mg-caffein Medicin 40 40 e 40 e mg-codeine mg-codeine mg-codeine 30 mg cap 30 mg cap 30 mg cap cephalexin cephalexin No 2capsul BID cephalexin Gay 500 mg 500 mg e(s) 500 mg Orthope capsule capsule capsule dic Take 2 Take 2 Take 2 Sports capsules capsules capsules Med icin twice a day twice a day twice a e by oral by oral day by route for route for oral route 14 days. 14 days. for 14 days. Cheratussin Cheratussin No Cheratussi Gay AC 10 AC 10 n AC 10 Orthope mg-100 mg/5 mg-100 mg/5 mg-100 dic mL oral mL oral mg/5 mL Sports liquid liquid oral Medicin liquid e ciprofloxac ciprofloxac No ciprofloxa Gay in 500 mg in 500 mg peter 500 mg Orthope tablet tablet tablet dic Sports Medicin e cyclobenzap cyclobenzap No cyclobenza Gay rine 10 mg rine 10 mg tom 10 Orthope tablet tablet mg tablet dic Sports Medicin e diazepam 10 diazepam 10 No diazepam Gay mg tablet mg tablet 10 mg Orth ope tablet dic Sports Medicin e diclofenac diclofenac No diclofenac Gay 1 % topical 1 % topical 1 % O rthope gel gel topical dic gel Sports Medicin e dicyclomine dicyclomine No dicyclomin Gay 10 mg 10 mg e 10 mg Orthope capsule capsule capsule dic Sports Medicin e duloxetine duloxetine No duloxetine Gay 30 mg 30 mg 30 mg [facility] capsule,del capsule,del capsule,de dic ayed ayed layed Sports release release release Medici n e duloxetine duloxetine No duloxetine Gay 60 mg 60 mg 60 mg Orthope capsule,del capsule,del capsule,de dic ayed ayed layed Sports release release release Medici n e Estrace Estrace No Estrace Gay 0.01% (0.1 0.01% (0.1 0.01% (0.1 Orthope mg/gram) mg/gram) mg/gram) dic vaginal vaginal vaginal Sports cream cream cream Medicin e fluconazole fluconazole No fluconazol Gay 150 mg 150 mg e 150 mg Orthope tablet tablet tablet dic Sports Medicin e fluticasone fluticasone No fluticason Gay propionate propionate e Ort hope 50 50 propionate dic mcg/actuati mcg/actuati 50 S ports on nasal on nasal mcg/actuat M edicin spray,suspe spray,suspe ion nasal e nsion nsion spray,susp ension furosemide furosemide No furosemide Gay 20 mg 20 mg 20 mg Orthope tablet tablet tablet dic Sports Medicin e gabapentin gabapentin No gabapentin Gay 100 mg 100 mg 100 mg Orthope capsule capsule capsule dic Sports Medicin e glipizide 5 glipizide 5 No glipizide Gay mg tablet mg tablet 5 mg Ortho pe TAKE 1 TAKE 1 tablet dic TABLET (5 TABLET (5 TAKE 1 Spo rts MG) BY ORAL MG) BY ORAL TABLET (5 Medicin ROUTE 2 ROUTE 2 MG) BY e TIMES PER TIMES PER ORAL ROUTE DAY BEFORE DAY BEFORE 2 TIMES MEALS MEALS PER DAY BEFORE MEALS Ilevro 0.3 Ilevro 0.3 No Ilevro 0.3 Gay % eye % eye % eye Orthope drops,suspe drops,suspe drops,susp dic nsion nsion ension Sports Medicin e lactulose lactulose No lactulose Gay 10 gram/15 10 gram/15 10 gram/15 Orthope mL oral mL oral mL oral dic solution solution solution Spo rts Medicin e levofloxaci levofloxaci No levofloxac Gay n 250 mg n 250 mg in 250 mg Or thope tablet tablet tablet dic Sports Medicin e levofloxaci levofloxaci No levofloxac Gay n 500 mg n 500 mg in 500 mg Or thope tablet tablet tablet dic Sports Medicin e levothyroxi levothyroxi No levothyrox Gay ne 125 mcg ne 125 mcg ine 125 Orthope tablet tablet mcg tablet dic Sports Medicin e levothyroxi levothyroxi No levothyrox Gay ne 137 mcg ne 137 mcg ine 137 Orthope tablet tablet mcg tablet dic Sports Medicin e loperamide loperamide No loperamide Gay 1 mg/5 mL 1 mg/5 mL 1 mg/5 mL Orthope oral liquid oral liquid oral d ic liquid Sports Medicin e loperamide loperamide No loperamide Gay 1 mg/7.5 mL 1 mg/7.5 mL 1 mg/7.5 Orthope oral liquid oral liquid mL oral dic liquid Sports Medicin e loratadine loratadine No loratadine Gay 10 mg 10 mg 10 mg Orthope capsule capsule capsule dic Take by Take by Take by Sports oral route. oral route. oral M edicin route. e loratadine loratadine No loratadine Gay 10 mg 10 mg 10 mg Orthope tablet tablet tablet dic Sports Medicin e metoclopram metoclopram No metoclopra Gay simi 10 mg simi 10 mg mide 10 mg Orthope tablet tablet tablet dic Sports Medicin e metoclopram metoclopram No metoclopra Gay simi 5 mg simi 5 mg mide 5 mg Or thope tablet tablet tablet dic Sports Medicin e metoprolol metoprolol No metoprolol Gay succinate succinate succinate Orthope ER 25 mg ER 25 mg ER 25 mg dic tablet,exte tablet,exte tablet,ext Sports nded nded ended Medicin release 24 release 24 release 24 e hr Take 1 hr Take 1 hr Take 1 tablet tablet tablet every day every day every day by oral by oral by oral route. route. route. metoprolol metoprolol No metoprolol Gay tartrate 25 tartrate 25 tartrate Orthope mg tablet mg tablet 25 mg dic tablet Sports Medicin e metronidazo metronidazo No metronidaz Gay le 500 mg le 500 mg ole 500 mg Orthope tablet tablet tablet dic Sports Medicin e nitrofurant nitrofurant No nitrofuran Gay oin oin toin Orthope monohydrate monohydrate monohydrat dic /macrocryst /macrocryst e/macrocry Sports als 100 mg als 100 mg stals 100 Medicin capsule capsule mg capsule e ondansetron ondansetron No ondansetro Gay 8 mg 8 mg n 8 mg Orthope disintegrat disintegrat disintegra dic ing tablet ing tablet ting Spo rts tablet Medicin e ondansetron ondansetron No ondansetro Gay HCl 4 mg HCl 4 mg n HCl 4 mg O rthope tablet tablet tablet dic Sports Medicin e oxycodone-a oxycodone-a No oxycodone- Gay cetaminophe cetaminophe acetaminop Orthope n 10 mg-325 n 10 mg-325 hen 10 dic mg tablet mg tablet mg-325 mg Sports tablet Medicin e pantoprazol pantoprazol No pantoprazo Gay e 40 mg e 40 mg le 40 mg Ortho pe tablet,any tablet,any tablet,del dic yed release yed release ayed S ports release Medicin e polyethylen polyethylen No polyethyle Gay e glycol e glycol ne glycol Or thope 3350 17 3350 17 3350 17 dic gram/dose gram/dose gram/dose Sports oral powder oral powder oral M edicin powder e potassium potassium No potassium Gay chloride ER chloride ER chloride Orthope 10 mEq 10 mEq ER 10 mEq dic tablet,exte tablet,exte tablet,ext Sports nded nded ended Medicin release release release e prednisolon prednisolon No prednisolo Gay e acetate 1 e acetate 1 ne acetate Orthope % eye % eye 1 % eye dic drops,suspe drops,suspe drops,susp Sports nsion nsion ension Medicin e Prescriptio Prescriptio No Prescripti Gay n - Prior n - Prior on - Prior Orthope Authorizati Authorizati Authorizat dic on Request on Request ion Spo rts Request Medicin e Vital Signs Vital Name Observation Time Observation Value Comments Source Height 2021-10-08 00:00:00 66 [in_i] Gay O rthopedic Sports Medicine Procedures Procedure Date / Time Performing Clinician Source Performed XR, foot, 3 or more 2021-10-08 00:00:00 Gay O rthopedic view Sports Medicine Total Knee Arthroplasty 2017-11-11 00:00:00 [facility]du [place] [facility] ([facility]urg[facility] Sports Medicine Knee Surgery [facility] Sports Medicine Encounters Start End Encounter Admission Attending Care Care Encounter Source Date/Time Date/Time Type Type Clinicians Facility Department ID 2021-05-09 [facility] [id number] Common 11:06:17 Radha [id number] [facility] 2022-04-06 2022-04-06 Outpatient OLS_JONES_L AOSM AOSM [id number] Gay 00:00:00 00:00:[place] [id number] Orthop e dic Sports Medicin e 2021-12-06 2021-12-06 Outpatient OLS_JONES_L AOSM AOSM [id number] Gay 00:00:00 00:00:00 [place] [id number] Orthop e dic Sports Medicin e 2021-10-26 2021-10-26 Outpatient OLS_JONES_L AOSM AOSM [id number] Gay 10:33:00 10:33:00 [place] [id number] Orthop e dic Sports Medicin e 2021-10-24 2021-10-24 Outpatient JUAN[facility] [id number] [place] 05:46:00 05:46:00 HN [id number] [facility] 2021-10-08 2021-10-08 Outpatient ZAZ_JONES_L AOSM AOSM [id number] Gay 05:58:00 05:58:00 EE_ [id number] Orthop e dic Sports Medicin e 2021-10-08 2021-10-08 Outpatient ZAZ_JONES_L AOSM AOSM [id number] Gay 05:58:00 05:58:00 CINDY [id number] Orthop e dic Sports Medicin e 2021-10-08 2021-10-08 Outpatient ZAKris_JONES_L AOSM AOSM [id number] Gay 00:00:00 00:00:00 EEJORDAN Orthop e dic Sports Medicin e 2021-10-08 2021-10-08 Outpatient FRANKI Vines AOSM [id number] 00:00:00 00:00:00 Hernandez [id number] Yohan [id number] 2021-10-08 2021-10-08 Hernandez AOSM [place] - Ortho [id number] Gay 00:00:00 00:00:00 JUNO [place]Of[facility] dic MD: [id number] Spo rts [facility], [place] [address] , Ph. 2021-10-05 2021-10-05 Outpatient OLS_JONES_L AOSM AOSM [id number] Gay 10:28:00 10:28:00 [place] [id number] Orthop e dic Sports Medicin e 2021-08-30 2021-08-30 Outpatient ZAKris_JONES_L AOSM AOSM [id number] Gay 02:00:00 02:00:00 CINDY 89802 Orthop e dic Sports Medicin e 2019-05-24 2019-05-24 [facility] [id number] Common 15:16:00 15:16:00 [facility] 2019-05-24 2019-05-24 [facility] [id number] Common 14:19:00 14:19:00 [facility] 2019-05-21 2019-05-21 [facility] [id number] Common 09:00:00 09:00:00 [facility] Results This patient has no known results.
[2022-06-21] MEDS ORDERED: CODEINE 30MG/APAP 300MG TAB ONE (18:28)
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
[2022-06-21 22:36] VITALS: TEMP 98.3; O2SAT 100
[2022-06-21 22:37] VITALS: BP 122/68
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
== END 2022-06-21 20:20 | disposition home or self-care (01) ==
LOC: ER 18:06
DX: S16.1XXA Strain of muscle, fascia and tendon at neck level, initial encounter (principal); S09.90XA Unspecified injury of head, initial encounter; Z88.5 Allergy status to narcotic agent; Z88.8 Allergy status to other drugs, medicaments and biological substances; Z91.018 Allergy to other foods
CPT/HCPCS: 70450; 71045; 72125; 96372; 99284

== ENCOUNTER 2022-08-07 19:23 | Emergency (ER) | payer OTHER ==
--- OUTSIDE RECORDS SUMMARY | 2022-08-07 19:27 | XMS REPORT | Continuity of Care Document ---
:1955 Demographics Address [address] [place] [address] Email Address DECLINED 08/07/22 Preferred Language Kiswahili Marital Status Unknown Presybeterian Affiliation Unknown Race Unknown Additional Race(s) Unavailable Ethnic Group Unknown Author Organization [facility] t Address [address] [place] [id number] Care Team Providers Name Role Phone Kee Sauer Attending Clinician Unavailable Radha Elias Attending Clinician Unavailable GREGG Attending Clinician Unavailable VALENTINA Attending Clinician Unavailable BHAVANA Attending Clinician Unavailable Hernandez Vines Attending Clinician [phone] RGEGG Admitting Clinician Unavailable VALENTINA Admitting Clinician Unavailable BHAVANA Admitting Clinician Unavailable Payers Payer Name Policy Type Policy Number Effective Date Expiration Date S ninoska [employer] - [id number] 2021 [facility] 00:00:00 (MEDICARE REPLACEMENT/ADVANTA GE - HMO) [facility] [id number] 2017 [facility] - 00:00:00 STAR+PLUS (MEDICAID REPLACEMENT - HMO) [facility] [id number] 2021 [facility] 00:00:00 PLUS (MEDICARE REPLACEMENT HMO) Problems [...] it hypertensi hypertensi - [facility]I on on [facility] 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 emia type emia type [facility] Hypothyroi Hypothyroi Problem Active C ommon dism, dism, Spirit unspecifie unspecifie - CHI d type d type [facility] History of History of Problem Active C ommon cervical cervical Spirit cancer cancer - [facility] History of History of Problem Active C ommon breast breast Spirit cancer cancer - [facility] Type 2 Type 2 Problem Active Common diabetes diabetes Spirit mellitus mellitus - CHI without without St complicati complicati Kimmy kes on, on, Medical without without Center long-term long-term current current use of use of insulin insulin Allergies, Adverse Reactions, Alerts Allergy Allergy Status Severity Reaction(s) Onset Inactive Treating Comm ents Source Name Type Date Date Clinician Metformi Adverse Active diarrhea Commo n n HCl Reaction [facility] Lyrica Adverse Active vomiting Common Reaction [facility] Coconut Allergy Active Gay to Orthope substanc dic e Sports Medicin e Coconut Adverse Active hives Common Oil Reaction [facility] Social History Smoking Status Start Date Stop Date Source Former Smoker [facility]oped[facility] Medications Ordered Filled Start Stop Current Ordering Indication Dosage Frequency Signature Comments Components Source Medication Medication Date Date Medication? Clinician (SIG) Name Name Gabapentin Gabapentin 2019- Yes Radha 1 capsule Common - [facility] Spirit 00:00: - [facility]I 00 [facility] Prescriptio Prescriptio No Prescripti Gay n - Prior n - Prior on - Prior Orthope Authorizati Authorizati Authorizat dic on Request on Request ion Spo rts Request Medicin e promethazin promethazin No promethazi Gay e 25 [...] drops,susp Sports nsion nsion ension Medicin e Vital Signs Vital Name Observation Time Observation Value Comments Source Height 2021-10-08 00:00:00 66 [in_i] Gay O rthopedic Sports Medicine Procedures Procedure Date / Time Performing Clinician Source Performed XR, foot, 3 or more 2021-10-08 00:00:00 Gay Schaefer rthopedic view Sports Medicine Total Knee Arthroplasty 2017-11-11 00:00:00 Indu [place] [facility] (Surg[facility] Medicine Knee Surgery [facility] Orthoped[facility] Sports Medicine Encounters Start End Encounter Admission Attending Care Care Encounter Source Date/Time Date/Time Type Type Clinicians Facility Department ID 2022-07-01 Outpatient Sauer, [facility] [id number] Common 13:13:01 Shvivien [id number] [facility] 2021-05-09 Outpatient Jada, [facility] [id number] Common 11:06:17 Radha [id number] [facility] 2022-04-06 2022-04-06 Outpatient OLS_JONES_L AOSM AOSM [id number] Gay 00:00:00 00:[place] [id number] Orthop e dic Sports Medicin e 2021-12-06 2021-12-06 Outpatient OLS_JONES_L AOSM AOSM [id number] Gay 00:00:00 00:00:[place] [id number] Orthop e dic Sports Medicin e 2021-10-26 2021-10-26 Outpatient OLS_JONES_L AOSM AOSM [id number] Gay 10:33:00 10:33:00 [place] [id number] Orthop e dic Sports Medicin e 2021-10-24 2021-10-24 Outpatient [facility]Z [facility] [address] 05:46:00 05:46:00 0713 da [facility] Outre h Program 2021-10-08 2021-10-08 Outpatient ZAZ_JONES_L AOSM AOSM [id number] Gay 05:58:00 05:58:00 CINDY Orthop e dic Sports Medicin e 2021-10-08 2021-10-08 Outpatient ZAZ_JONES_L AOSM AOSM [id number] Gay 05:58:00 05:58:00 CINDY Orthop e dic Sports Medicin e 2021-10-08 2021-10-08 Outpatient ZAZ_JONES_L AOSM AOSM [id number] Gay 00:00:00 00:00:00 CINDY Orthop e dic Sports Medicin e 2021-10-08 2021-10-08 Outpatient Jasmyn AOSM AOSM [id number] 00:00:00 00:00:00 Hernandez [id number] Yohan [id number] 2021-10-08 2021-10-08 Hernandez DOAN [place] - Ortho [id number] Gay 00:00:00 00:00:00 JUNO [place]_Ofc dic MD: [id number], [place] [address] , Ph. 2021-10-05 2021-10-05 Outpatient OLS_BARRON_L AOSM AOSM [id number] Gay 10:28:00 10:28:00 EE [id number] Orthop e dic Sports Medicin e 2021-08-30 2021-08-30 Outpatient SEAN_JONES_L AOSM AOSM [id number] Gay 02:00:00 02:00:00 CINDY [id number] Orthop e dic Sports Medicin e 2019-05-24 2019-05-24 Out[facility] [id number] Common 15:16:00 15:16:00 [facility] 2019-05-24 2019-05-24 Out[facility] [id number] Common 14:19:00 14:19:00 [facility] 2019-05-21 2019-05-21 Out[facility] 29 Common 09:00:00 09:00:00 [facility] Results This patient has no known results.
--- NOTE | 2022-08-07 22:47 | RAD REPORT ---
EXAM DESCRIPTION: CT - Head C Spine Cap Wo Con - 08/07/2022 10:17 pm CLINICAL HISTORY: PAIN COMPARISON: Abdomen Pelvis W Contrast dated 04/12/2019 TECHNIQUE: Head and cervical spine CT images were obtained without IV contrast. Chest, abdomen, and pelvis CT images were obtained also without IV contrast. Multiplanar reformats were generated and rev iewed. All CT scans are performed using dose optimization technique as appropriate and may include automated exposure control or mA/KV adjustment according to patient size. FINDINGS: CT HEAD: No intracranial hemorrhage, mass effect, or edema. No evidence of acute territorial infarct. No midli ne shift or abnormal fluid collection. The ventricles are normal in caliber and configuration for age . Basal cisterns are patent. Mastoid aircells and paranasal sinuses are clear. No acute skull fractur e. CT CERVICAL SPINE: No acute cervical spine fracture or subluxation. Vertebral body heights are well maintained. Facet isael ints are normal in alignment. No hyperattenuating canal hematoma. Prevertebral and paraspinous soft t issues are unremarkable. CT CHEST: No pneumothorax, pulmonary contusion or pleural fluid collection. Ground-glass 1.3 centimeter left up per lobe nodule. No mediastinal hematoma and the aorta and pulmonary arteries are unremarkable. No ch est will mass or abnormal axillary finding. Dense calcifications along the mitral valve. No displaced rib fracture or other significant bony finding. CT ABDOMEN/ PELVIS: No evidence of traumatic injury to solid abdominal viscera. Nodular contour of the liver, suggesting cirrhotic changes. Gallbladder was surgically removed. Biliary tree is within normal limits. Dystroph ic calcifications along the pelvic sidewalls, more so on the left, and along the soft tissues interpo sed between the vaginal cuff and the rectum. The appearance is mildly progressive since 2019. Mild so ft tissue thickening in the presacral space is stable. No bowel injury or other significant finding. No free air, free fluid or abnormal fat stranding. No urinary bladder abnormality. No significant bony finding. IMPRESSION: No acute traumatic findings in the head, cervical spine, chest, abdomen, or pelvis. Mildly progressive dystrophic calcifications along the pelvic sidewalls and interposed between the va ginal cuff and rectum. Findings favor post radiation changes, although other metabolic abnormalities, suggest hyperparathyroidism could result in a similar appearance. Left upper lobe 1.3 centimeter ground-glass nodule is incidentally noted, likely benign given size. Other stable findings as above, including nodular contour of the liver suggestive of cirrhotic change s.
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
[2022-08-07 23:31] VITALS: BP 118/65; TEMP 97; O2SAT 99
== END 2022-08-07 23:25 | disposition home or self-care (01) ==
LOC: ER 19:23
DX: R29.91 Unspecified symptoms and signs involving the musculoskeletal system (principal)
CPT/HCPCS: 70450; 71250; 72125; 99283